=== PATIENT | female | born 1990 | race Two or more races ===

== ENCOUNTER 2022-01-30 12:53 | Emergency (ER) | payer OTHER ==
[~2022-01-30] VITALS: Ht 167.6 cm; Wt 101.0 kg
[2022-01-30] MEDS ORDERED: LORAZEPAM 0.5MG TABLET PO ONE (16:00)
[2022-01-30] MEDS ORDERED: ASPIRIN 81MG TABLET PO ONE (16:00)
[2022-01-30 16:23] LABS: BASOPHILS % 0.2 % (0.0-2.0); EOSINOPHILS % 0.3 % (0.0-5.0); HEMATOCRIT. 39.4 % (36.0-48.0); HEMOGLOBIN. 13.3 g/dL (12.0-16.0); MEAN CORPUSCULAR HEMOGLOBIN 28.4 pg (28.0-32.0); MEAN CORPUSCULAR VOLUME 84.1 fL (81.0-99.0); MEAN PLATELET VOLUME 9.5 fl (7.4-10.4); MONOCYTES % 8.2 % (2.0-8.0); NEUTROPHILS % 80.3 % (40.0-76.0); PLATELET 300 x1000/uL (130-400); RED BLOOD CELL COUNT 4.69 mill/uL (4.2-5.4); RED CELL DISTRIBUTION WIDTH 13.3 % (11.6-14.6)
[2022-01-30 16:30] LABS: CHLORIDE 106 mEq/L (98-107)
[2022-01-30 16:32] LABS: HCG SCREEN NEGATIVE
[2022-01-30 16:39] LABS: ETHANOL BLOOD < 10 mg/dL
[2022-01-30 16:54] LABS: *AMPHETAMINES SCREEN URINE NEGATIVE (NEGATIVE); *BARBITURATES SCREEN URINE NEGATIVE (NEGATIVE); *BENZODIAZEPINES SCREEN URINE NEGATIVE (NEGATIVE); *COCAINE SCREEN URINE NEGATIVE (NEGATIVE); CANNABINOID URINE SCREEN NEGATIVE (NEGATIVE); METHADONE URINE SCREEN NEGATIVE (NEGATIVE); OPIATES URINE SCREEN NEGATIVE (NEGATIVE); PHENCYCLIDINE URINE SCREEN NEGATIVE (NEGATIVE)
[2022-01-30 17:54] VITALS: BP 113/78
[2022-01-30] MEDS ORDERED: LORA-249 MT (18:07)
== END 2022-01-30 18:29 | disposition home or self-care (01) ==
LOC: ER 12:53
DX: F41.9 Anxiety disorder, unspecified (principal)
CPT/HCPCS: 36415; 71045; 80053; 80305; 80320; 83880; 84484; 84703; 85025; 85379; 93005; 99285; Z7610; G0480